=== PATIENT | male | born 1975 | race Caucasian/White ===

== ENCOUNTER 2019-06-01 17:25 | Emergency (ER) | payer OTHER ==
[2019-06-01] MEDS ORDERED: ASPIRIN 81 MG TABLET, CHEWABLE PO ONE (17:55)
--- NOTE | 2019-06-01 17:58 | ER Document Report ---
ED Medical Screen (RME) - General Chief Complaint: Chest Tightness Stated Complaint: CHEST TIGHTNESS Time Seen by Provider: 06/01/19 17:55 Mode of Arrival: Ambulatory Information source: Patient Notes: Patient presents complaining of chest tightness for several months. Patient states that he went to get bumps to the back of his arm evaluated that have been there for the past 5 days and the urgent care performed an EKG due to his report of chest tightness. Patient had a regular heart rate which prompted them to have him come here. Patient complains of occasional lightheadedness and keila phoresis. Patient does report occasional dizziness. No nausea or vomiting. Patient denies any cardiac history. I have greeted and performed a rapid initial assessment of this patient. A comprehensive ED assessment and evaluation of the patient, analysis of test results and completion of the medical decision making process will be conducted by additional ED providers. TRAVEL OUTSIDE OF THE [place] IN LAST 30 DAYS: No - Related Data Allergies/Adverse Reactions: No Known Allergies Allergy (Verified 06/01/19 17:26) Physical Exam - Vital signs Vitals: Temp Pulse Resp BP Pulse Ox 98.2 F 60 16 119/73 94 06/01/19 17:42 06/01/19 17:42 06/01/19 17:42 06/01/19 17:42 06/01/19 17:42 - Cardiovascular Rhythm: Irregularly irregular - Occasional bradycardic 50's to tachycardic 110's. Course - Vital Signs Vital signs: Temp Pulse Resp BP Pulse Ox 98.2 F 60 16 119/73 94 06/01/19 17:42 06/01/19 17:42 06/01/19 17:42 06/01/19 17:42 06/01/19 17:42
[2019-06-01 18:32] LABS: ABSOLUTE BASOPHILS # (AUTO) 0.1 10^3/uL (0.0-0.2); ABSOLUTE EOSINOPHILS # (AUTO) 0.4 10^3/uL (0.0-0.6); ABSOLUTE LYMPHOCYTES (AUTO) 2.5 10^3/uL (0.5-4.7); ABSOLUTE NEUT (AUTO) 3.5 10^3/uL (1.7-8.2); BASOPHILS % (AUTO) 1.1 % (0-2); EOSINOPHILS % (AUTO) 5.3 % (0-6); HEMATOCRIT 41.2 % (37.9-51.0); HEMOGLOBIN 14.3 g/dL (13.5-17.0); MEAN CORPUSCULAR HEMOGLOBIN 30.6 pg (27.0-33.4); MEAN CORPUSCULAR HGB CONC 34.6 g/dL (32.0-36.0); MEAN CORPUSCULAR VOLUME 89 fl (80-97); PLATELET COUNT 231 10^3/uL (150-450); RED BLOOD COUNT 4.66 10^6/uL (4.35-5.55); RED CELL DISTRIBUTION WIDTH 13.5 % (11.5-14.0); SEGMENTED NEUTROPHILS % (AUTO) 47.6 % (42-78); TOTAL CELLS COUNTED % (AUTO) 100 %; WHITE BLOOD COUNT 7.4 10^3/uL (4.0-10.5)
--- NOTE | 2019-06-01 18:50 | RADIOLOGY REPORT (SQ) ---
EXAM DESCRIPTION: CHEST 2 VIEWS COMPLETED DATE/TIME: 06/01/2019 6:29 pm REASON FOR STUDY: cp COMPARISON: None. EXAM PARAMETERS: NUMBER OF VIEWS: two views TECHNIQUE: Digital Frontal and Lateral radiographic views of the chest acquired. RADIATION DOSE: NA LIMITATIONS: none FINDINGS: LUNGS AND PLEURA: No opacities, masses or pneumothorax. No pleural effusion. MEDIASTINUM AND HILAR STRUCTURES: No masses or contour abnormalities. HEART AND VASCULAR STRUCTURES: Heart normal size. No evidence for failure. BONES: No acute findings. HARDWARE: Cervicothoracic ACDF hardware. OTHER: No other significant finding. IMPRESSION: No evidence of acute or chronic cardiopulmonary abnormality. TECHNICAL DOCUMENTATION: JOB ID: [id number] [employer]- All Rights Reserved Reading location - IP/workstation name: [email or web address]
[2019-06-01 18:59] LABS: ALANINE AMINOTRANSFERASE 48 U/L (21-72); ALBUMIN 4.2 g/dL (3.5-5.0); ALKALINE PHOSPHATASE 67 U/L (38-126); ANION GAP 7 (5-19); ASPARTATE AMINO TRANSFERASE 32 U/L (17-59); BILIRUBIN,DIRECT 0.3 mg/dL (0.0-0.4); BILIRUBIN,TOTAL 0.3 mg/dL (0.2-1.3); BLOOD UREA NITROGEN 13 mg/dL (7-20); CALCIUM 9.5 mg/dL (8.4-10.2); CARBON DIOXIDE 28 mmol/L (22-30); CHLORIDE 104 mmol/L (98-107); GLUCOSE 86 mg/dL (75-110); SODIUM 139.4 mmol/L (137-145); TOTAL PROTEIN 6.7 g/dL (6.3-8.2)
[2019-06-01 21:21] VITALS: BP 121/99
--- NOTE | 2019-06-01 21:23 | ER Document Report ---
ED General - General Chief Complaint: Chest Tightness Stated Complaint: CHEST TIGHTNESS Time Seen by Provider: 06/01/19 17:55 Mode of Arrival: Ambulatory TRAVEL OUTSIDE OF THE [place] IN LAST 30 DAYS: No - HPI Notes: Patient is a 43-year-old male who presents to the emergency department for evaluation of chest tightness. He was actually referred in from an urgent care. He went there for "bumps on the back of his arms" and described his chest tightness there. He said it daily for months. His heart was irregular, so he sent him here to the emergency department for evaluation. His chest tightness is present intermittently, seems to be constant over the last several weeks. He has some associated shortness of breath, denies any nausea, diaphoresis, near syncope. The pain is not exertional. - Related Data Allergies/Adverse Reactions: No Known Allergies Allergy (Verified 06/01/19 17:26) Past Medical History - General Information source: Patient - Social History Smoking Status: Current Every Day Smoker Frequency of alcohol use: Occasional Drug Abuse: None Family History: Other - Unknown, patient is adopted Patient has suicidal ideation: No Patient has homicidal ideation: No Renal/ Medical History: Denies: Hx Peritoneal Dialysis Psychiatric Medical History: Reports: Hx Depression Past Surgical History: Reports: Hx Orthopedic Surgery - neck disk surgery Review of Systems - Review of Systems Constitutional: No symptoms reported EENT: No symptoms reported Cardiovascular: See HPI Respiratory: See HPI Gastrointestinal: No symptoms reported Genitourinary: No symptoms reported Musculoskeletal: No symptoms reported Skin: No symptoms reported Neurological/Psychological: No symptoms reported Physical Exam - Vital signs Vitals: Temp Pulse Resp BP Pulse Ox 98.2 F 60 16 119/73 94 06/01/19 17:42 06/01/19 17:42 06/01/19 17:42 06/01/19 17:42 06/01/19 17:42 - Notes Notes: Vital signs reviewed, please refer to chart. Head is normocephalic, atraumatic. Pupils equal round, reactive to light. Neck is supple without meningismus. Heart is regular with occasional ectopic beat. Lungs are clear to auscultation bilaterally. Abdomen is soft, nontender, normoactive bowel sounds throughout. Extremities without cyanosis, clubbing. Posterior calves are nontender. Peripheral pulses are equal. Skin is warm and dry. Patient is awake, alert, neurological exam is nonfocal. Course - Re-evaluation Re-evalutation: 06/01/19 21:21 Presents emergency department for evaluation of chest tightness. It is not exertional. On further questioning the patient admits to drinking upwards of 5 to 7 cups of coffee a day. Laboratory investigations revealed a negative troponin. He has had chest pain for some time. He was advised that he needs to quit smoking. He was advised that he should cut his caffeine consumption down significantly. No significant laboratory investigation abnormality was noted. At this time patient is stable. He is to return to the ED with worsening, otherwise follow-up with primary care. - Vital Signs Vital signs: Temp Pulse Resp BP Pulse Ox 98.2 F 60 26 H 110/86 H 98 06/01/19 17:42 06/01/19 17:42 06/01/19 20:01 06/01/19 20:01 06/01/19 20:01 - Laboratory Result Diagrams: 06/01/19 18:14 06/01/19 18:14 - Diagnostic Test Radiology reviewed: Reports reviewed Radiology results interpreted by me: 06/01/19 21:22 Chest X-Ray 06/01/19 17:56 IMPRESSION: No evidence of acute or chronic cardiopulmonary abnormality. - EKG Interpretation by Me Additional EKG results interpreted by me: 06/01/19 21:22 Sinus mechanism with frequent PVCs, PACs. Rate of 105 bpm. Normal axis and intervals, no acute ST changes concerning for ischemia or infarction. Discharge - Discharge Clinical Impression: Frequent PVCs, Frequent PACs Chest pain Qualifiers: Chest pain type: unspecified Qualified Code(s): R07.9 - Chest pain, unspecified Condition: Stable Disposition: HOME, SELF-CARE Instructions: Chest Pain of Unclear Cause ([facility]) Additional Instructions: Try to quit smoking. Cut your caffeine consumption as discussed. Follow-up with primary care next week. Return to the emergency department with worsening or new concerning symptoms. Forms: Smoking Cessation Education
--- NOTE | 2019-06-02 00:29 | EKG REPORT ---
SEVERITY:- ABNORMAL ECG - SINUS WITH FREQUENT APCs MULTIFORM VENTRICULAR PREMATURE COMPLEXES : Confirmed by: Vivian Frazier 02-Jun-2019 00:28:34
--- NOTE | 2019-06-02 00:30 | EKG REPORT ---
SEVERITY:- OTHERWISE NORMAL ECG - SINUS TACHYCARDIA WITH APCs VENTRICULAR PREMATURE COMPLEX : Confirmed by: Vivian Frazier 02-Jun-2019 00:28:58
== END 2019-06-01 21:55 | disposition home or self-care (01) ==
LOC: ER 17:25
DX: I49.3 Ventricular premature depolarization (principal); I49.1 Atrial premature depolarization; R07.9 Chest pain, unspecified; F17.200 Nicotine dependence, unspecified, uncomplicated
CPT/HCPCS: 36415; 71046; 80053; 83735; 84484; 85025; 93005; 93010; 99285